=== PATIENT | female | born 1945 | race Hispanic/Latino ===

== ENCOUNTER 2016-10-26 13:32 | Emergency (ER) | payer MEDICARE ==
[2016-10-26 13:42] VITALS: TEMP 98.3; BMI 22.1
[2016-10-26] MEDS ORDERED: Albuterol-Ipratrop 3 mg / 0.5 (3 ml) UD IH STA (14:15)
--- NOTE | 2016-10-26 14:19 | ED PDOC ---
Arrival/HPI - General Chief Complaint: Cough, Cold, Congestion Time Seen by Provider: 10/26/16 14:11 Historian: Patient - History of Present Illness Narrative History of Present Illness (Text): 10/26/16 14:17 71 year old female with a past medical history that includes asthma and hypertension presents to the emergency department with shortness of breath and cough, pt reports on zpak and albuterol from urgent care on 10/21. reports persistent cough. Patient reports she was given Z James which did not improve symptoms. She also reports "sweats." Denies tobacco use. No other complaints at this time. PMD: Dr. Stanford 10/26/16 21:46 Time/Duration: < week Symptom Onset: Gradual Symptom Course: Unchanged Modifying Factors (Text): Z james gave no improvement. Associated Symptoms (Text): None Past Medical History - Provider Review Nursing Documentation Reviewed: Yes - Cardiac Hx Hypertension: Yes - Pulmonary Hx Asthma: Yes - Neurological Hx Neurological Disorder: No - HEENT Hx HEENT Disorder: No - Renal Hx Renal Disorder: No - Endocrine/Metabolic Hx Endocrine Disorders: Yes Other/Comment: THYROID DISEASE - Integumentary Hx Dermatological Disorder: No - Musculoskeletal/Rheumatological Hx Musculoskeletal Disorders: No - Gastrointestinal Hx Gastroesophageal Reflux: Yes - Genitourinary/Gynecological Hx Genitourinary Disorders: No - Psychiatric Hx Psychophysiologic Disorder: No Hx Substance Use: No Family/Social History - Physician Review Nursing Documentation Reviewed: Yes Family/Social History: Unknown Family HX Smoking Status: Never Smoked Hx Alcohol Use: No Hx Substance Use: No Allergies/Home Meds Allergies/Adverse Reactions: Allergies iodine Allergy (Verified 10/26/16 14:01) SWELLING propoxyphene HCl [From Darvon] Allergy (Verified 10/26/16 14:01) SWELLING shellfish derived Allergy (Verified 10/26/16 14:01) SWELLING Sulfa (Sulfonamide Antibiotics) Allergy (Verified 10/26/16 14:01) SWELLING Review of Systems - Physician Review All systems were reviewed & negative as marked: Yes - Review of Systems Constitutional: Other (sweats) Respiratory: SOB, Cough Gastrointestinal: absent: Abdominal Pain Genitourinary Female: absent: Dysuria, Frequency, Hematuria Physical Exam Vital Signs Reviewed: Yes Vital Signs Temp Pulse Resp BP Pulse Ox 10/26/16 17:00 63 18 141/69 96 10/26/16 15:04 64 18 143/71 96 10/26/16 14:04 20 98 10/26/16 13:41 98.3 F 66 18 145/76 96 Temperature: Afebrile Blood Pressure: Normal Pulse: Regular Respiratory Rate: Normal Appearance: Positive for: Well-Appearing, Non-Toxic, Comfortable Pain Distress: None Mental Status: Positive for: Alert and Oriented X 3 - Systems Exam Head: Present: Atraumatic, Normocephalic Pupils: Present: PERRL Extroacular Muscles: Present: EOMI Conjunctiva: Present: Normal Mouth: Present: Moist Mucous Membranes Neck: Present: Normal Range of Motion Respiratory/Chest: Present: Good Air Exchange, Wheezes (Scattered). No: Respiratory Distress, Accessory Muscle Use Cardiovascular: Present: Regular Rate and Rhythm, Normal S1, S2. No: Murmurs Abdomen: Present: Normal Bowel Sounds. No: Tenderness, Distention, Peritoneal Signs Back: Present: Normal Inspection Upper Extremity: Present: Normal Inspection. No: Cyanosis, Edema Lower Extremity: Present: Normal Inspection. No: Edema Neurological: Present: GCS=15, CN II-XII Intact, Speech Normal Skin: Present: Warm, Dry, Normal Color. No: Rashes Psychiatric: Present: Alert, Oriented x 3, Normal Insight, Normal Concentration Medical Decision Making ED Course and Treatment: Impression: 71 year old female with a past medical history that includes asthma presents to the emergency department with shortness of breath and cough, not improving since visiting urgent care earlier this week. Differential Diagnosis include but are not limited to: Bronchitis vs pneumonia vs asthma, less likely pe. scattered wheezing on initial exam. Plan: -- EKG, Chest X-ray -- Duoneb, Solumedrol -- Labs -- Reassess and disposition Progress Notes: EKG shows NSR at [address]/T wave changes, interpreted by me. 10/26/16 17:35 ct chest with iv contrast added to eval for pe, ro occult. infiltrate. . pt now reports h/o of iv contrast allergy. offered dry ct and v/q study. pt states she prefers to go home at this time, instead of further imaging study diagnostic testing. suspicion of pe/occult pna is low, given not tachycardic tachpneic, speaking full sentences.. pt states "bad reaction" to previous nuclear study, refuses v/q study. also requested to add on ddimer, however pt states she does not wish to wait in er for test results, instead feels better for d/c lungs improved, minimal exp wheezing. pt states she will return with worsening symptoms. also offered admission observation to medical service. pt declines, states she feels well to go home.. pt has outpt pulm f/u on saturday. 10/26/16 21:46 - Lab Interpretations Lab Results: 10/26/16 15:15 10/26/16 15:15 Lab Results 10/26/16 17:00: Urine Color Yellow, Urine Appearance Clear, Urine pH 7.0, Ur Specific [place] 1.010, Urine Protein Negative, Urine Glucose (UA) Negative, Urine Ketones Negative, Urine Blood Negative, Urine Nitrate Negative, Urine Bilirubin Negative, Urine Urobilinogen 0.2, Ur Leukocyte Esterase Negative 10/26/16 15:30: Influenza Typ A,B (EIA) Negative for flu a/b 10/26/16 15:15: WBC 11.7 H D, RBC 4.32, Hgb 13.5, Hct 39.8, MCV 92.1, MCH 31.3, MCHC 33.9, RDW 13.2, Plt Count 303, MPV 10.2, Gran % 53.4, Lymph % (Auto) 36.8 H , Rush % (Auto) 7.3 H, Eos % (Auto) 1.5, Baso % (Auto) 1.0, Gran # 6.25, Lymph # 4.3 H, Rush # 0.9 H, Eos # 0.2, Baso # 0.12, PT 10.8, INR 1.00, APTT 25.0, Sodium 138, Potassium 4.4, Chloride 100, Carbon Dioxide 31, Anion Gap 11, BUN 15 , Creatinine 0.7, Est GFR ( Amer) > 60, Est GFR (Non-Af Amer) > 60, Random Glucose 88, Calcium 9.9, Magnesium 2.4 H, Total Bilirubin 0.6, AST 34, ALT 13, Alkaline Phosphatase 89, Lactate Dehydrogenase 442, Total Creatine Kinase 58, Troponin I < 0.01, Total Protein 8.7 H, Albumin 4.2, Globulin 4.5, Albumin/Globulin Ratio 0.9 L - RAD Interpretation Radiology Orders: 10/26/16 14:14 CHEST PORTABLE [RAD] Stat - EKG Interpretation Interpreted by ED Physician: Yes Type: 12 lead EKG - Medication Orders Current Medication Orders: Discontinued Medications Albuterol/Ipratropium (Duoneb 3 Mg/0.5 Mg (3 Ml) Ud) 3 ml IH STAT STA Stop: 10/26/16 14:16 Last Admin: 10/26/16 15:00 Dose: 3 ML Methylprednisolone (Solu-Medrol) 125 mg IVP STAT STA Stop: 10/26/16 14:16 Last Admin: 10/26/16 15:09 Dose: 125 MG IVP Administration Document 10/26/16 15:09 JOHN (Rec: 10/26/16 15:09 JOHN [id number]) Charges for Administration # of IVP Administrations 1 - Scribe Statement The provider has reviewed the documentation as recorded by the Dayanara Cannon Provider Scribe Attestation: All medical record entries made by the Shilaibdarling were at my direction and personally dictated by me. I have reviewed the chart and agree that the record accurately reflects my personal performance of the history, physical exam, medical decision making, and the department course for this patient. I have also personally directed, reviewed, and agree with the discharge instructions and disposition. Disposition/Present on Arrival - Present on Arrival Any Indicators Present on Arrival: No History of DVT/PE: No History of Uncontrolled Diabetes: No Urinary Catheter: No History of Decub. Ulcer: No History Surgical Site Infection Following: None - Disposition Have Diagnosis and Disposition been Completed?: Yes Diagnosis: Bronchitis Disposition: HOME/ ROUTINE Disposition Time: 17:38 Condition: STABLE Discharge Instructions (ExitCare): Acute Bronchitis (ED) Additional Instructions: please return to er with worsening symptoms or concerns. Prescriptions: Nebulizer [Aeroeclipse] 1 each MC Q6 PRN #1 each PRN Reason: Wheezing Albuterol 0.083% [Albuterol 0.083% Inhal Rebecca (2.5 mg/3 ml) UD] 2.5 mg IH Q6 PRN #20 neb PRN Reason: Wheezing Mask, Face [Nebulizer Aerosol Mask Adult] 1 dev XX PRN PRN #1 dev PRN Reason: Wheezing Prednisone 50 mg PO DAILY #5 tab Referrals: Artis Stanford MD [Primary Care Provider] - Follow up with primary
--- NOTE | 2016-10-26 14:31 | RAD ---
HISTORY: sob COMPARISON: 08/18/2015 FINDINGS: LUNGS: There is pulmonary hyperinflation and peribronchial thickening with chronic changes in both lungs. PLEURA: No significant pleural effusion identified, no pneumothorax apparent. CARDIOVASCULAR: Normal. OSSEOUS STRUCTURES: No significant abnormalities. VISUALIZED UPPER ABDOMEN: Normal. OTHER FINDINGS: None. IMPRESSION: COPD. No active pulmonary disease.
[2016-10-26 15:05] VITALS: RESP 18; O2SAT 96
[2016-10-26 15:21] LABS: ADD MANUAL DIFF? NO
[2016-10-26 15:34] LABS: BASO # 0.12 K/mm3 (0.0-2.0); EOS # 0.2 (0.0-0.7); EOS % 1.5 % (1.5-5.0); GRAN # 6.25 (1.4-6.5); GRAN % 53.4 % (50.0-68.0); HEMATOCRIT 39.8 % (36.0-48.0); LYMPH # 4.3 (1.2-3.4); LYMPH % 36.8 % (22.0-35.0); MEAN CELL VOLUME 92.1 fL (80.0-105.0); MEAN CORPUSCULAR HEMOGLOBIN 31.3 pg (25.0-35.0); MEAN CORPUSCULAR HGB CONC 33.9 g/dl (31.0-37.0); MEAN PLATELET VOLUME 10.2 fl (7.0-11.0); MONO # 0.9 (0.1-0.6); MONO % 7.3 % (1.0-6.0); PLATELET COUNT 303 10^3/uL (120.0-450.0); RED CELL DISTRIBUTION WIDTH 13.2 % (11.5-14.5); WHITE BLOOD COUNT 11.7 10^3/ul (4.5-11.0)
[2016-10-26 15:46] LABS: ALB/GLOB RATIO 0.9 (1.1-1.8); ALKALINE PHOSPHATASE 89 U/L (38-133); ALT/SGPT 13 U/L (7-56); AST/SGOT 34 U/L (15-39); BILIRUBIN,TOTAL 0.6 mg/dL (0.2-1.3); BLOOD UREA NITROGEN 15 mg/dL (7-21); CALCIUM 9.9 mg/dL (8.4-10.5); CARBON DIOXIDE 31 mmol/L (21-33); CHLORIDE 100 mmol/L (98-107); GFR AFRICAN-AMERICAN > 60; GLUCOSE,RANDOM 88 mg/dL (70-110); MAGNESIUM 2.4 mg/dL (1.7-2.2); POTASSIUM 4.4 mmol/L (3.6-5.0); SODIUM 138 mmol/L (132-148); TOTAL PROTEIN 8.7 g/dL (5.8-8.3)
[2016-10-26 16:01] LABS: TROPONIN I < 0.01 ng/mL
[2016-10-26 17:35] LABS: URINE BILIRUBIN NEGATIVE (NEGATIVE); URINE BLOOD NEGATIVE (NEGATIVE); URINE GLUCOSE (UA) NEGATIVE (NEGATIVE); URINE KETONE NEGATIVE (NEGATIVE); URINE LEUKOCYTE ESTERASE NEGATIVE Leu/uL (NEGATIVE); URINE PROTEIN NEGATIVE mg/dL (<30 mg/dL); URINE UROBILINOGEN 0.2 E.U./dL (<1 E.U./dL)
[2016-10-26 17:37] VITALS: BP 141/69; PULSE 63
[2016-10-26 17:40] LABS: URINE APPEARANCE CLEAR (CLEAR); URINE COLOR YELLOW (YELLOW)
--- NOTE | 2016-10-27 09:55 | CARD ---
APPROVED REPORT EKG Measurement Heart [id number] <Conclusion> Normal sinus rhythm Normal ECG
== END 2016-10-26 17:53 | disposition home or self-care (01) ==
LOC: ED 13:32
DX: J40 Bronchitis, not specified as acute or chronic (principal); I10 Essential (primary) hypertension
CPT/HCPCS: 71010; 80053; 81003; 82550; 83615; 83735; 84484; 85025; 85610; 85730; 87804; 93005; 96374; 99282; J2930